=== PATIENT | female | born 1990 | race Caucasian/White ===

== ENCOUNTER 2024-11-04 19:02 | Emergency (ER) | payer OTHER ==
[2024-11-04 19:10] VITALS: BP 129/92; PULSE 102; RESP 20; TEMP 98.6; BMI 25.4
[2024-11-04] MEDS: DIPHTH,PERTUSS(ACELL),TET 0.5 ML DISP.SYRIN IM ONE (20:18)
[2024-11-04] MEDS ORDERED: IBUPROFEN 600 MG TABLET (FP) PO ONE (20:26)
[2024-11-04] MEDS: IBUPROFEN 600 MG TABLET (FP) PO ONE (20:28)
== END 2024-11-04 20:29 | disposition home or self-care (01) ==
LOC: JERFT 19:02 → JER 19:02 → JERFT 20:29
PROC: 0HQFXZZ Repair Right Hand Skin, External Approach (ICD-10-PCS; principal; 2024-11-04)
PROC: 3E0234Z Introduction of Serum, Toxoid and Vaccine into Muscle, Percutaneous Approach (ICD-10-PCS; 2024-11-04)
DX: S61.011A Laceration without foreign body of right thumb without damage to nail, initial encounter (principal); Z23 Encounter for immunization; W25.XXXA Contact with sharp glass, initial encounter
CPT/HCPCS: 12001-25; 90471; 90715; 99284-25